=== PATIENT | female | born 1975 | race African-American/Black ===

== ENCOUNTER 2017-01-03 13:53 | Emergency (ER) | payer BC ==
[~2017-01-03] VITALS: Ht 162.6 cm; Wt 156.5 kg
--- NOTE | ~2017-01-03 | EKG ---
[address] [address] ELECTROCARDIOGRAM REPORT Name: JANE MEDELLIN Sally [facility] [id number] Admission: 01/03/17 Attend Phys: Discharge: 01/03/17 Date of : 71 Report #: [id number] THIS REPORT FOR: //name// [facility] ED Test Date: 2017-01-03 Test Time: 14:23:35 Pat Name: JANE MEDELLIN Department: Room: Gender: F [employer]down Processor: [id number] : 1975 Requested By: Brittany Clinton Order Number: [id number] MD: Abisai Boles Measurements Intervals [place] Rate: 78 P: 59 [place]: 180 QRS: -3 QRSD: 118 T: 9 QT: 410 QTc: 468 Interpretive Statements Sinus rhythm Nonspecific intraventricular conduction delay No previous ECG available for comparison Electronically Signed On 01-03-2017 22:44:10 CDT by Abisai Boles [email or web address] <ELECTRONICALLY SIGNED> By: Abisai Boles MD 01/03/17 2244 1423 1423 MD SUE Nguyen
[2017-01-03 13:54] VITALS: BP 186/105
[2017-01-03 14:34] LABS: URINE BILIRUBIN NEGATIVE (Negative); URINE BLOOD 2+ (Negative); URINE COLOR YELLOW; URINE GLUCOSE-RANDOM* NEGATIVE (Negative); URINE KETONES TRACE (Negative); URINE LEUKOCYTES-REFLEX TRACE (Negative); URINE PROTEIN (DIPSTICK) 1+ (Negative); URINE UROBILINOGEN 0.2 E.U./dl (0.2-1.0)
[2017-01-03 14:36] LABS: ABSOLUTE NEUTROPHILS 4.2 thou/uL (1.4-8.2); BASOPHILS 0.8 % (0.0-2.0); EOSINOPHILS 0.7 % (0.0-3.0); HEMATOCRIT 34.7 % (37.0-47.0); LYMPHOCYTES 40.2 % (24.0-44.0); MCH 26.2 pg (26.0-34.0); MCHC 31.7 g/dL (28.0-37.0); MCV 82.6 fL (80.0-100.0); MONOCYTES 6.3 % (1.0-8.0); PLATELET COUNT 268 thou/uL (150-400); RDW 18.1 % (10.5-14.5); WBC 8.1 thou/uL (4.0-11.0)
[2017-01-03 14:41] LABS: MANUAL DIFF NO
[2017-01-03 14:43] LABS: ANION GAP 12 mmol/L (7-16); BUN 13 mg/dL (7-18); CHLORIDE 101 mmol/L (98-107); CO2 23 mmol/L (21-32); CREATININE 1.2 mg/dL (0.6-1.0); GLUCOSE 92 mg/dL (74-106); POTASSIUM 3.8 mmol/L (3.5-5.1); SODIUM 136 mmol/L (136-145)
[2017-01-03 14:46] LABS: CASTS None Seen /LPF (None Seen); CRYSTALS None Seen /LPF (None Seen); SQUAMOUS >10 Many /LPF (0-3); URINE RBC 0-2 Rare /HPF (0-2); URINE WBC-REFLEX 0-5 Rare /HPF (0-5)
[2017-01-03 14:51] LABS: ALBUMIN 4.4 g/dL (3.4-5.0); ALKALINE PHOSPHATASE 90 U/L (46-116); DIRECT BILIRUBIN 0.1 mg/dL (<0.1-0.3); SGOT 15 U/L (15-37); SGPT 13 U/L (30-65); TOTAL BILIRUBIN 0.5 mg/dL (<0.1-1.0); TOTAL PROTEIN 8.4 g/dL (6.4-8.2); TROPONIN-I < 0.04 ng/mL (<0.04-0.07)
[2017-01-03] MEDS ORDERED: LINZESS145 MCG PO (17:49)
[2017-01-03] MEDS ORDERED: BENTYL 20 MG TA20 M1 PO (17:49)
[2017-01-03] MEDS ORDERED: LIDOCAINE 2%2 %/5 GM RECTAL (17:49)
[2017-01-03] MEDS ORDERED: ZOFRAN ODT4 MG PO (17:49)
[2017-01-03] MEDS ORDERED: BISACODYL SUPP10 MG RECTAL (17:49)
== END 2017-01-03 18:36 | disposition home or self-care (01) ==
LOC: ER 13:53
PROVIDERS: Emergency Medicine
DX: K56.41 Fecal impaction (principal); R11.2 Nausea with vomiting, unspecified; I10 Essential (primary) hypertension; E66.01 Morbid (severe) obesity due to excess calories; Z68.43 Body mass index [BMI] 50.0-59.9, adult; Z88.6 Allergy status to analgesic agent; Z88.5 Allergy status to narcotic agent; Z88.0 Allergy status to penicillin

== ENCOUNTER 2021-02-21 22:47 | Emergency (ER) | payer OTHER ==
[~2021-02-21] VITALS: Ht 162.6 cm; Wt 162.4 kg
[~2021-02-21 22:47] MED LIST: BENTYL 20 MG TA20 M1 PO; BISACODYL SUPP10 MG RECTAL; LIDOCAINE 2%2 %/5 GM RECTAL; LINZESS145 MCG PO; ZOFRAN ODT4 MG PO
[2021-02-22] MEDS ORDERED: TRAMADOL 50 MG50 MG PO (00:34)
[2021-02-22] MEDS ORDERED: NAPROSYN500 MG PO (02:21)
[2021-02-22 03:04] VITALS: BP 186/97
== END 2021-02-22 03:14 | disposition home or self-care (01) ==
LOC: ER 22:47
DX: G62.9 Polyneuropathy, unspecified (principal); I10 Essential (primary) hypertension; E66.01 Morbid (severe) obesity due to excess calories; Z68.44 Body mass index [BMI] 60.0-69.9, adult; Z98.890 Other specified postprocedural states; Z79.899 Other long term (current) drug therapy; Z79.891 Long term (current) use of opiate analgesic; Z88.0 Allergy status to penicillin; Z88.5 Allergy status to narcotic agent; Z88.6 Allergy status to analgesic agent

== ENCOUNTER 2021-02-23 03:41 | Emergency (ER) | payer OTHER ==
[~2021-02-23] VITALS: Ht 160 cm; Wt 169.2 kg
[~2021-02-23 03:41] MED LIST changes: +NAPROSYN500 MG PO; +TRAMADOL 50 MG50 MG PO
[2021-02-23 05:56] VITALS: BP 194/110
== END 2021-02-23 05:56 | disposition home or self-care (01) ==
LOC: ER 03:41
DX: I89.0 Lymphedema, not elsewhere classified (principal); B37.9 Candidiasis, unspecified; I10 Essential (primary) hypertension; E66.01 Morbid (severe) obesity due to excess calories; Z68.44 Body mass index [BMI] 60.0-69.9, adult; Z98.890 Other specified postprocedural states; Z79.891 Long term (current) use of opiate analgesic; Z79.899 Other long term (current) drug therapy; Z88.6 Allergy status to analgesic agent; Z88.0 Allergy status to penicillin; Z88.5 Allergy status to narcotic agent

== ENCOUNTER 2021-05-22 03:11 | Emergency (ER) | payer OTHER ==
[~2021-05-22] VITALS: Ht 162.6 cm; Wt 149.7 kg
[2021-05-22 04:18] LABS: ABSOLUTE NEUTROPHILS 2.4 thou/uL (1.4-8.2); BASOPHILS 0.9 % (0.0-2.0); EOSINOPHILS 4.1 % (0.0-3.0); HEMOGLOBIN 10.1 gm/dL (12.0-15.0); MCHC 33.7 g/dL (28.0-37.0); MCV 83.3 fL (80.0-100.0); MONOCYTES 7.5 % (1.0-8.0); PLATELET COUNT 200 thou/uL (150-400); POLYS 47.5 % (36.0-66.0)
[2021-05-22 04:28] LABS: CALCIUM 8.8 mg/dL (8.5-10.1); CREATININE 1.2 mg/dL (0.6-1.0); POTASSIUM 3.6 mmol/L (3.5-5.1)
[2021-05-22 04:34] LABS: ALBUMIN 3.5 g/dL (3.4-5.0); TOTAL BILIRUBIN 0.3 mg/dL (0.2-1.0); TOTAL PROTEIN 6.7 g/dL (6.4-8.2)
[2021-05-22 04:35] LABS: URINE BILIRUBIN NEGATIVE (Negative); URINE BLOOD 2+ (Negative); URINE CLARITY CLEAR; URINE COLOR YELLOW; URINE GLUCOSE-RANDOM* NEGATIVE (Negative); URINE KETONES NEGATIVE (Negative); URINE LEUKOCYTES-REFLEX NEGATIVE (Negative); URINE NITRITE-REFLEX NEGATIVE (Negative); URINE PROTEIN (DIPSTICK) 2+ (Negative); URINE SPECIFIC GRAVITY 1.025 (1.005-1.035); URINE UROBILINOGEN 0.2 E.U./dl (0.2-1.0)
[2021-05-22 05:54] LABS: AMP/METHAMP Negative (Negative); BARBITURATES Negative (Negative); BENZODIAZEPINES Negative (Negative); COCAINE Negative (Negative); METHADONE Negative (Negative); OPIATES Negative (Negative); PCP Negative (Negative)
[2021-05-22 06:52] LABS: BACTERIA-REFLEX None Seen /HPF (None Seen); CASTS None Seen /LPF (None Seen); CRYSTALS None Seen /LPF (None Seen); MUCUS 0-3 Light strn/LPF (None Seen); SQUAMOUS 0-3 Few /LPF (0-3); URINE WBC-REFLEX None Seen /HPF (0-5)
[2021-05-22 06:53] LABS: URINE RBC 3-10 Few /HPF (NONE SEEN)
[2021-05-22 09:22] VITALS: BP 149/84
== END 2021-05-22 09:23 | disposition home or self-care (01) ==
LOC: ER 03:11
PROVIDERS: Emergency Medicine
DX: R51.9 Headache, unspecified (principal); Z20.822 Contact with and (suspected) exposure to COVID-19; R10.10 Upper abdominal pain, unspecified; R11.2 Nausea with vomiting, unspecified; G62.9 Polyneuropathy, unspecified; I10 Essential (primary) hypertension; E66.01 Morbid (severe) obesity due to excess calories; Z88.0 Allergy status to penicillin; Z88.5 Allergy status to narcotic agent